=== PATIENT | female | born 1985 | race Caucasian/White ===

== ENCOUNTER 2016-12-28 18:57 | Emergency (ER) | payer OTHER ==
[~2016-12-28 18:57] MED LIST: NORGTAB36 PO; PANT40TA PO
[2016-12-28 19:04] VITALS: BP 135/87; PULSE 82; TEMP 37; O2SAT 95; Ht 172.7 cm
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
== END 2016-12-28 19:16 | disposition home or self-care (01) ==
LOC: C.EDD 18:58
DX: T23.001A Burn of unspecified degree of right hand, unspecified site, initial encounter (principal); W86.8XXA Exposure to other electric current, initial encounter; K21.9 Gastro-esophageal reflux disease without esophagitis; Z79.899 Other long term (current) drug therapy; Z88.8 Allergy status to other drugs, medicaments and biological substances